=== PATIENT | male | born 1960 | race Caucasian/White ===

== ENCOUNTER 2020-02-04 10:44 | Emergency (ER) | payer OTHER, BC ==
[~2020-02-04] VITALS: Ht 182.9 cm; Wt 81.6 kg
--- NOTE | 2020-02-04 10:47 | NUR ---
BIBRA 39 FROM HOME, C/O MID SCHEST PRESSURE-LIKE PAIN, NON-RADIATING, ON AND OFF x 3 DAYS. 09/20 PS. TO ER BED 9, HOOKED TO TIEDOWN OPERATOR, BP CUFF AND POX, CHANGED TO HOSP GOWN, WARM BLANKET PROVIDED, PATIENT AAOx 4, BREATHING EVEN AND UNLABORED, NAD NOTED, DR NIXON AT BEDSIDE FOR EVAL.
--- NOTE | 2020-02-04 11:06 | NUR ---
patient in bed awake, hooked to personnel monitor. will continue to monitor accordingly.
[2020-02-04 11:09] LABS: BASOPHILS # (AUTO) 0.1 /CMM (0.0-0.2); BASOPHILS % (AUTO) 0.7 % (0.0-2.0); HEMATOCRIT 43 % (39-51); HEMOGLOBIN 14.9 g/dL (13.5-17.5); LYMPHOCYTES # (AUTO) 2.4 /CMM (0.8-4.8); LYMPHOCYTES % (AUTO) 34.2 % (20.0-44.0); MEAN CORPUSCULAR HGB CONC 35 g/dl (31.0-36.0); MEAN CORPUSCULAR VOLUME 92 fL (80-96); MONOCYTES # (AUTO) 0.6 /CMM (0.1-1.30); MONOCYTES % (AUTO) 9.1 % (2.0-12.0); NEUTROPHILS # (AUTO) 3.7 /CMM (1.8-8.9); PLATELET COUNT (AUTO) 278 /CMM (150-450); RED BLOOD CELL COUNT(AUTO) 4.65 MIL/uL (4.5-6.0); WHITE BLOOD COUNT (AUTO) 6.9 K/uL (4.3-11.0)
[2020-02-04 11:23] LABS: ALANINE AMINOTRANSFERASE 27 U/L (12-78); ALBUMIN 4.2 g/dL (3.4-5.0); ALKALINE PHOSPHATASE 61 U/L (46-116); ASPARTATE AMINOTRANSFERASE 17 U/L (15-37); BILIRUBIN,DIRECT 0.1 mg/dL (0.0-0.2); BILIRUBIN,TOTAL 0.5 mg/dL (0.2-1.0); CALCIUM, SERUM 8.9 mg/dL (8.5-10.1); CARBON DIOXIDE 27 mmol/L (21-32); CHLORIDE 106 mmol/L (98-107); CREATININE 0.9 mg/dL (0.6-1.3); GLUCOSE 98 mg/dL (74-106); SODIUM SERUM 141 mmol/L (136-145); TOTAL PROTEIN, SERUM 7.4 g/dL (6.4-8.2); UREA NITROGEN, BLOOD 16 mg/dL (7-18)
--- NOTE | 2020-02-04 12:11 | NUR ---
IV removed. Catheter intact and site benign. Pressure and 4x4 applied to site. No bleeding noted.Patient discharged to home in stable condition. Written and verbal after care instructions given. Patient verbalizes understanding of instruction.
[2020-02-04 12:12] VITALS: BP 142/87
== END 2020-02-04 12:13 | disposition home or self-care (01) ==
LOC: ER 10:46
DX: R07.89 Other chest pain (principal); I10 Essential (primary) hypertension
CPT/HCPCS: 36415; 71045-TC; 80048-TC; 80076-TC; 84484-TC; 85025-TC; 85378-TC

== ENCOUNTER 2020-10-10 04:27 | Emergency (ER) | payer OTHER, BC ==
[~2020-10-10] VITALS: Ht 182.9 cm; Wt 81.6 kg
--- NOTE | 2020-10-10 04:30 | NUR ---
PRESENTED TO THE ER FOR C/O ABD PAIN MOSTLY ON LEFT QUADS. REPORTED THE PAIN STARTED ON TUESDAY NIGHT AFTER HAVING SOME CHICKEN FROM [employer]. PAIN CONTINUED ON AND OFF TILL IT GOT WORSE ABOUT 6 HRS AGO, +NAUSEA. REPORTED AN EPISODE OF [facility] ON Tuesday AN NO MORE AFTER. PT AMBULATOR TO BED 4 ER, WAS PLACED ON A MONITOR. NOTED W. HIGH SBP>200, DR ARCHIBALD MADE AWARE. WILL CONT TO MONITOR,
[2020-10-10] MEDS ORDERED: hydrALAZINE HCL IV 20 MG VIAL IV ONE (05:00)
[2020-10-10] MEDS ORDERED: IV NS 0.9% 1,000 ML BAG IV ONE (05:00)
[2020-10-10] MEDS ORDERED: ONDANSETRON HCL/PF 4 MG/2 ML VIAL IVP ONE (05:00)
[2020-10-10] MEDS ORDERED: hydrALAZINE HCL IV 20 MG VIAL ONE (05:10)
[2020-10-10] MEDS ORDERED: ONDANSETRON HCL/PF 4 MG/2 ML VIAL ONE (05:11)
[2020-10-10 05:14] LABS: BASOPHILS # (AUTO) 0.1 K/uL (0.0-0.2); BASOPHILS % (AUTO) 0.7 % (0.0-2.0); EOSINOPHILS % (AUTO) 0.8 % (0.0-6.0); HEMATOCRIT 43 % (39-51); LYMPHOCYTES # (AUTO) 1.8 K/uL (0.8-4.8); LYMPHOCYTES % (AUTO) 21.8 % (20.0-44.0); MEAN CORPUSCULAR HGB CONC 35 g/dl (31.0-36.0); MEAN CORPUSCULAR VOLUME 91 fL (80-96); MONOCYTES # (AUTO) 0.6 K/uL (0.1-1.30); MONOCYTES % (AUTO) 7.2 % (2.0-12.0); NEUTROPHILS # (AUTO) 5.7 K/uL (1.8-8.9); NEUTROPHILS % (AUTO) 69.5 % (43.0-81.0); PLATELET COUNT (AUTO) 318 K/uL (150-450); RED BLOOD CELL COUNT(AUTO) 4.79 MIL/uL (4.5-6.0); WHITE BLOOD COUNT (AUTO) 8.2 K/uL (4.3-11.0)
[2020-10-10 05:19] LABS: BILIRUBIN,URINE Negative (NEGATIVE); COLOR,URINE YELLOW (YELLOW); LEUKOCYTE ESTERASE ,URINE Negative (NEGATIVE); NITRITE, URINE Negative (NEGATIVE); PH,URINE 6.5 (5.0-8.0); PROTEIN,URINE Negative (NEGATIVE); UGLUCOSE Negative (NEGATIVE); UROBILINOGEN,URINE 0.2 EU/dL (0.2)
[2020-10-10] MEDS ORDERED: MORPHINE SULFATE INJ 4 MG/ML DISP.SYRIN ONE (05:23)
[2020-10-10 05:28] LABS: CALCIUM, SERUM 9.1 mg/dL (8.5-10.1); CARBON DIOXIDE 23 mmol/L (21-32); CHLORIDE 103 mmol/L (98-107); CREATININE 0.9 mg/dL (0.6-1.3); GLUCOSE 135 mg/dL (74-106); POTASSIUM 4.4 mmol/L (3.5-5.1); SODIUM SERUM 140 mmol/L (136-145); UREA NITROGEN, BLOOD 14 mg/dL (7-18)
[2020-10-10] MEDS ORDERED: MORPHINE SULFATE INJ 2 MG/ML DISP.SYRIN IV ONE (05:30)
[2020-10-10 05:34] LABS: ALANINE AMINOTRANSFERASE 36 U/L (12-78); ALKALINE PHOSPHATASE 66 U/L (46-116); ASPARTATE AMINOTRANSFERASE 17 U/L (15-37); BILIRUBIN,DIRECT 0.1 mg/dL (0.0-0.2); BILIRUBIN,TOTAL 0.4 mg/dL (0.2-1.0); LIPASE 174 U/L (73-393); TOTAL PROTEIN, SERUM 7.3 g/dL (6.4-8.2)
[2020-10-10] MEDS ORDERED: OXYC-128 PO (06:45)
[2020-10-10] MEDS ORDERED: DICY10CA37 PO (06:45)
[2020-10-10] MEDS ORDERED: MAG30ORA PO (06:45)
[2020-10-10] MEDS ORDERED: HYDR-3976 PO (06:52)
[2020-10-10 07:11] VITALS: BP 151/89
--- NOTE | 2020-10-10 07:11 | NUR ---
Patient discharged to home in stable condition. Written and verbal after care instructions given. Patient verbalizes understanding of instruction. IV removed. Catheter intact and site benign. Pressure and 4x4 applied to site. No bleeding noted.
== END 2020-10-10 07:12 | disposition home or self-care (01) ==
LOC: ER 04:29
DX: A05.9 Bacterial foodborne intoxication, unspecified (principal); I10 Essential (primary) hypertension; Z90.89 Acquired absence of other organs; Z98.890 Other specified postprocedural states
CPT/HCPCS: 36415; 74176; 80048; 80076; 81003; 83690; 84484; 85025; 93005; 96361; 96374; 96375; 99285; J0360; J2270; J2405; J7030